=== PATIENT | male | born 1960 | race Caucasian/White ===

== ENCOUNTER 2017-11-12 10:15 | Emergency (ER) | payer OTHER ==
[2017-11-12] MEDS ORDERED: NORMAL SALINE 1000 ML 1,000 ML IV ONE (10:33)
--- NOTE | 2017-11-12 10:35 | ER Document Report ---
ED Medical Screen (RME) - General Chief Complaint: Dizziness Stated Complaint: DIZZINESS Time Seen by Provider: 11/12/17 10:20 Mode of Arrival: Ambulatory Information source: Patient TRAVEL OUTSIDE OF THE [place] IN LAST 30 DAYS: No - HPI Patient complains to provider of: Palpitations, lightheadedness, feeling jittery Onset: This morning Notes: 11/12/17 10:34 Patient is a 57-year-old male with history of type 2 diabetes presenting to the emergency room complaining of lightheadedness with palpitations and feeling jittery, symptoms started this morning, he also admits to excessive alcohol consumption on a daily basis with his last drink being sometime yesterday evening - Related Data Allergies/Adverse Reactions: Penicillins Allergy (Verified 11/12/17 10:18) Past Medical History - Past Medical History Cardiac Medical History: Reports: Hx Hypercholesterolemia, Hx Hypertension Endocrine Medical History: Reports: Hx Diabetes Mellitus Type 2 - Immunizations Hx Diphtheria, Pertussis, Tetanus Vaccination: Yes Physical Exam - Vital signs Vitals: Temp Pulse Resp BP Pulse Ox 98.4 F 112 H 18 138/85 H 97 11/12/17 10:21 11/12/17 10:21 11/12/17 10:21 11/12/17 10:21 11/12/17 10:21 Course - Vital Signs Vital signs: Temp Pulse Resp BP Pulse Ox 98.4 F 112 H 18 138/85 H 97 11/12/17 10:21 11/12/17 10:21 11/12/17 10:21 11/12/17 10:21 11/12/17 10:21 Doctor's Discharge - Discharge Referrals: MICHELLE HARTMANN MD [Primary Care Provider] - Follow up as needed
[2017-11-12 11:15] LABS: ABSOLUTE LYMPHOCYTES (AUTO) 1.6 10^3/uL (0.5-4.7); ABSOLUTE MONOCYTES (AUTO) 1.1 10^3/uL (0.1-1.4); BASOPHILS % (AUTO) 0.4 % (0-2); EOSINOPHILS % (AUTO) 0.3 % (0-6); HEMATOCRIT 40.9 % (37.9-51.0); HEMOGLOBIN 14.4 g/dL (13.5-17.0); LYMPHOCYTES % (AUTO) 16.2 % (13-45); MEAN CORPUSCULAR HEMOGLOBIN 33.4 pg (27.0-33.4); MEAN CORPUSCULAR HGB CONC 35.3 g/dL (32.0-36.0); MEAN CORPUSCULAR VOLUME 95 fl (80-97); MONOCYTES % (AUTO) 11.2 % (3-13); PLATELET COUNT 242 10^3/uL (150-450); RED BLOOD COUNT 4.33 10^6/uL (4.35-5.55); RED CELL DISTRIBUTION WIDTH 13.5 % (11.5-14.0); SEGMENTED NEUTROPHILS % (AUTO) 71.9 % (42-78); TOTAL CELLS COUNTED % (AUTO) 100 %; WHITE BLOOD COUNT 9.7 10^3/uL (4.0-10.5)
[2017-11-12 11:34] LABS: APPEARANCE,URINE CLOUDY; BILIRUBIN,URINE NEGATIVE (NEGATIVE); GLUCOSE, URINE NEGATIVE (NEGATIVE); KETONES,URINE TRACE mg/dL (NEGATIVE); LEUKOCYTE ESTERASE,URINE NEGATIVE (NEGATIVE); NITRITE,URINE NEGATIVE (NEGATIVE); PROTEIN,URINE 100 mg/dL (NEGATIVE); URINE SPECIFIC GRAVITY 1.018
[2017-11-12 11:35] LABS: ALANINE AMINOTRANSFERASE 63 U/L (21-72); ALBUMIN 5.1 g/dL (3.5-5.0); ALCOHOL < 10 mg/dL (NONE DETECTED); ALKALINE PHOSPHATASE 62 U/L (38-126); ANION GAP 17 (5-19); ASPARTATE AMINO TRANSFERASE 68 U/L (17-59); BILIRUBIN,DIRECT 0.4 mg/dL (0.0-0.4); BILIRUBIN,TOTAL 0.9 mg/dL (0.2-1.3); BLOOD UREA NITROGEN 32 mg/dL (7-20); CALCIUM 9.7 mg/dL (8.4-10.2); CARBON DIOXIDE 23 mmol/L (22-30); CHLORIDE 98 mmol/L (98-107); GLUCOSE 153 mg/dL (75-110); SODIUM 138.3 mmol/L (137-145); TOTAL PROTEIN 8.6 g/dL (6.3-8.2)
[2017-11-12 11:37] LABS: COLOR,URINE YELLOW
[2017-11-12] MEDS: RINGERS SOLUTION,LACTATED 1,000 ML IV PRN ×2 (13:52→16:20)
[2017-11-12 16:31] LABS: ANION GAP 13 (5-19); BLOOD UREA NITROGEN 26 mg/dL (7-20); CALCIUM 9.5 mg/dL (8.4-10.2); CARBON DIOXIDE 25 mmol/L (22-30); CHLORIDE 101 mmol/L (98-107); GLUCOSE 93 mg/dL (75-110); POTASSIUM 4.4 mmol/L (3.6-5.0); SODIUM 139.2 mmol/L (137-145)
--- NOTE | 2017-11-12 17:38 | ER Document Report ---
ED General - General Chief Complaint: Dizziness Stated Complaint: DIZZINESS Time Seen by Provider: 11/12/17 10:20 Mode of Arrival: Ambulatory Notes: 57-year-old male who admits to history of chronic alcoholism presents emergency department complaining that he started feeling dizzy and quite fatigued this morning while he was at work, felt like it was difficulty to focus and when he bent down and then stood back up again became more dizzy and felt like he was going to pass out except his vision did not go black. Patient admits that he ate quite a bit to drink last night however he states he is a functional alcoholic so he does not feel like this was significantly more than he would usually drink. States he has never had any withdrawal, denies feeling like he has tremors right now, denies any hallucinations, denies any history of seizures. Admits diarrhea this morning, denies vomiting, denies abdominal pain, numbness, tingling or headache. TRAVEL OUTSIDE OF THE [place] IN LAST 30 DAYS: No - Related Data Allergies/Adverse Reactions: Penicillins Allergy (Verified 11/12/17 10:18) Past Medical History - General Information source: Patient - Social History Smoking Status: Never Smoker Chew tobacco use (# tins/day): No Frequency of alcohol use: Heavy Drug Abuse: None Family History: Hypertension Patient has suicidal ideation: No Patient has homicidal ideation: No - Past Medical History Cardiac Medical History: Reports: Hx Hypercholesterolemia, Hx Hypertension Endocrine Medical History: Reports: Hx Diabetes Mellitus Type 2 Renal/ Medical History: Denies: Hx Peritoneal Dialysis - Immunizations Hx Diphtheria, Pertussis, Tetanus Vaccination: Yes Review of Systems - Review of Systems Constitutional: See HPI, Weakness EENT: No symptoms reported Cardiovascular: See HPI Respiratory: No symptoms reported Neurological/Psychological: See HPI -: Yes All other systems reviewed and negative Physical Exam - Vital signs Vitals: Temp Pulse Resp BP Pulse Ox 98.6 F 99 16 135/76 H 95 11/12/17 10:17 11/12/17 10:17 11/12/17 10:17 11/12/17 10:17 11/12/17 10:17 Interpretation: Normal - Notes Notes: GENERAL: Alert, interacts well. No acute distress. HEAD: Normocephalic, atraumatic EYES: Pupils equal, round and reactive to light, extraocular movements intact. ENT: Oral mucosa moist, tongue midline. NECK: Full range of motion, supple, trachea midline. LUNGS: Clear to auscultation bilaterally, no wheezes, rales or rhonchi, no respiratory distress. HEART: Tachycardic rate, regular rhythm, no murmurs, gallops, rubs. ABDOMEN: Soft, nontender, nondistended, bowel sounds present in all 4 quadrants. EXTREMITIES: Moves all 4 extremities spontaneously, no edema, radial and dorsalis pedis pulses 2/4 bilaterally. No cyanosis. NEUROLOGICAL: Alert and oriented x3, normal speech, biceps and patellar DTRs 2+ bilaterally. PSYCH: Normal mood, normal affect. SKIN: Warm, Dry, normal turgor, no rashes or lesions noted. Course - Re-evaluation Re-evalutation: 11/12/17 17:36 CBC unremarkable, CMP shows elevated BUN at 32, elevated creatinine at 2.04, is quite possibly from dehydration which fits with his description of bending over and standing up and feeling like he is going to pass out in the fact he is tachycardic and his tachycardia increases when he goes from laying down to sitting, cardiac enzymes negative, urinalysis shows trace ketones again supporting dehydration, alcohol level is undetectable. EKG shows tachycardia without ischemia. 11/12/17 17:36 Patient was hydrated with several liters of normal saline, BMP was repeated and it showed significant improvement with a BUN of 26 and creatinine of 1.32, patient still has some mild tachycardia with a heart rate of 107. I suspect the majority of this is coming from dehydration likely a combination of heavy alcohol use combined with exertion in the feet. Patient is encouraged to quit drinking, refuses any resources or to consult with mental health for outpatient resources. No indication for hospitalization, no evidence of anything beyond very mild withdrawal that may be causing his tachycardia combined with dehydration. Patient will be discharged to home. Patient is encouraged to follow-up with a primary care physician as an outpatient to have his renal function rechecked in a week. - Vital Signs Vital signs: Temp Pulse Resp BP Pulse Ox 98.6 F 99 18 135/76 H 97 11/12/17 11:33 11/12/17 12:00 11/12/17 12:00 11/12/17 12:00 11/12/17 12:00 - Laboratory Result Diagrams: 11/12/17 10:47 11/12/17 15:34 Laboratory results interpreted by me: 11/12/17 11/12/17 11/12/17 10:35 10:47 10:47 RBC 4.33 L BUN 32 H Creatinine 2.04 H Est GFR ( Amer) 41 L Est GFR (Non-Af Amer) 34 L Glucose 153 H POC Glucose 182 H AST 68 H Total Protein 8.6 H Albumin 5.1 H Urine Protein Urine Ketones Urine Urobilinogen 11/12/17 11/12/17 10:47 15:34 RBC BUN 26 H Creatinine 1.32 H Est GFR ( Amer) Est GFR (Non-Af Amer) 56 L Glucose POC Glucose AST Total Protein Albumin Urine Protein 100 H Urine Ketones TRACE H Urine Urobilinogen 2.0 H - EKG Interpretation by Me Additional EKG results interpreted by me: 11/12/17 17:37 EKG shows sinus tachycardia at a rate of 109, no ST segment elevations or depressions, no T-wave inversions, rapid R-wave progression per my interpretation. Discharge - Discharge Clinical Impression: Dehydration, Alcoholism Acute renal failure Qualifiers: Acute renal failure type: unspecified Qualified Code(s): N17.9 - Acute kidney failure, unspecified Condition: Stable Disposition: HOME, SELF-CARE Additional Instructions: Today your blood work showed dehydration and some damage to your kidneys because of this. After hydrating you it has improved significantly but is not completely gone. It is very important that you quit drinking alcohol, drink plenty of water to stay hydrated and have your kidney function rechecked in approximately 1 week. You may have this done at a primary care physician's office, at an urgent care or any other doctors office of your choice. Referrals: MICHELLE HARTMANN MD [COMMUNITY BASED STAFF] - Follow up in 3-5 days
[2017-11-12 17:59] VITALS: BP 155/89
--- NOTE | 2017-11-12 22:16 | EKG REPORT ---
SEVERITY:- BORDERLINE ECG - SINUS TACHYCARDIA CONSIDER ANTERIOR INFARCT BORDERLINE T ABNORMALITIES, ANTERIOR LEADS : Confirmed by: Oj Gavin 12-Nov-2017 22:15:36
== END 2017-11-12 17:59 | disposition home or self-care (01) ==
LOC: ER 10:15
DX: E86.0 Dehydration (principal); N17.9 Acute kidney failure, unspecified; F10.239 Alcohol dependence with withdrawal, unspecified; R00.0 Tachycardia, unspecified; R42 Dizziness and giddiness; R53.83 Other fatigue; R19.7 Diarrhea, unspecified; I10 Essential (primary) hypertension; E11.9 Type 2 diabetes mellitus without complications; Z88.0 Allergy status to penicillin
CPT/HCPCS: 93005; 99284; 96360; 36415; 82962; 80307; 85025; 80048; 80053; 81001; 84484; 93010; J7030; J7120

== ENCOUNTER 2018-07-11 13:47 | Emergency (ER) | payer OTHER ==
[2018-07-11] MEDS ORDERED: NORMAL SALINE 1000 ML 1,000 ML IV ONE (14:04)
[2018-07-11] MEDS ORDERED: ONDANSETRON HCL INJ/PF 4 MG/2 ML SDV IV ONE (14:04)
--- NOTE | 2018-07-11 14:06 | ER Document Report ---
ED Medical Screen (RME) - General Chief Complaint: Numbness of Face Stated Complaint: NUMBNESS OF FACE Time Seen by Provider: 07/11/18 14:01 Mode of Arrival: Wheelchair Information source: Patient TRAVEL OUTSIDE OF THE [place] IN LAST 30 DAYS: No - HPI Patient complains to provider of: Numbness and tingling sensation to hands feet and face Notes: 07/11/18 14:05 Patient is a 58-year-old male presenting to the emergency room complaining of numbness and tingling sensation to hands feet and face, the tingling sensation has been going on to the feet for some time, the hands have developed over the last few days and the facial tingling has developed today, patient admits to being a heavy consumer of alcohol with binge drinking over this weekend, states he "blacked out" and does not remember when his last drink was but it was probably sometime yesterday 07/11/18 14:06 RAPID MEDICAL EVALUATION DISCLOSURE I have seen this patient as part of a Rapid Medical Evaluation and, if applicable, placed any initially appropriate orders. The patient will be seen and fully evaluated, including a full history and physical exam, by a provider (in Main ED or Fast Track) when a room becomes available. - Related Data Allergies/Adverse Reactions: Penicillins Allergy (Verified 07/11/18 13:50) Past Medical History - Past Medical History Cardiac Medical History: Reports: Hx Hypercholesterolemia, Hx Hypertension Endocrine Medical History: Reports: Hx Diabetes Mellitus Type 2 Renal/ Medical History: Denies: Hx Peritoneal Dialysis - Immunizations Hx Diphtheria, Pertussis, Tetanus Vaccination: Yes
[2018-07-11 16:01] LABS: ABSOLUTE LYMPHOCYTES (AUTO) 0.8 10^3/uL (0.5-4.7); ABSOLUTE MONOCYTES (AUTO) 0.9 10^3/uL (0.1-1.4); BASOPHILS % (AUTO) 0.4 % (0-2); EOSINOPHILS % (AUTO) 0.1 % (0-6); HEMATOCRIT 38.4 % (37.9-51.0); HEMOGLOBIN 13.9 g/dL (13.5-17.0); LYMPHOCYTES % (AUTO) 9.6 % (13-45); MEAN CORPUSCULAR HGB CONC 36.1 g/dL (32.0-36.0); MEAN CORPUSCULAR VOLUME 91 fl (80-97); MONOCYTES % (AUTO) 10.5 % (3-13); PLATELET COUNT 231 10^3/uL (150-450); RED BLOOD COUNT 4.21 10^6/uL (4.35-5.55); RED CELL DISTRIBUTION WIDTH 12.8 % (11.5-14.0); SEGMENTED NEUTROPHILS % (AUTO) 79.4 % (42-78); TOTAL CELLS COUNTED % (AUTO) 100 %; WHITE BLOOD COUNT 8.9 10^3/uL (4.0-10.5)
[2018-07-11 16:19] LABS: A TYPE INFLUENZA AG NEGATIVE (NEGATIVE); B INFLUENZA AG NEGATIVE (NEGATIVE)
[2018-07-11 16:36] LABS: ALANINE AMINOTRANSFERASE 45 U/L (21-72); ALBUMIN 4.8 g/dL (3.5-5.0); ALKALINE PHOSPHATASE 65 U/L (38-126); ANION GAP 15 (5-19); ASPARTATE AMINO TRANSFERASE 34 U/L (17-59); BILIRUBIN,DIRECT 0.2 mg/dL (0.0-0.4); BLOOD UREA NITROGEN 11 mg/dL (7-20); CALCIUM 9.5 mg/dL (8.4-10.2); CARBON DIOXIDE 28 mmol/L (22-30); CHLORIDE 81 mmol/L (98-107); CREATINE KINASE 162 U/L (55-170); GLUCOSE 120 mg/dL (75-110); POTASSIUM 3.5 mmol/L (3.6-5.0); SODIUM 124.4 mmol/L (137-145); TOTAL PROTEIN 8.2 g/dL (6.3-8.2)
[2018-07-11 16:38] LABS: CREATINE KINASE MB 2.45 ng/mL (<4.55)
[2018-07-11 16:48] LABS: TROPONIN I < 0.012 ng/mL
[2018-07-11 17:30] LABS: APPEARANCE,URINE CLEAR; BILIRUBIN,URINE NEGATIVE (NEGATIVE); COLOR,URINE STRAW; GLUCOSE, URINE 50 mg/dL (NEGATIVE); KETONES,URINE TRACE mg/dL (NEGATIVE); LEUKOCYTE ESTERASE,URINE NEGATIVE (NEGATIVE); NITRITE,URINE NEGATIVE (NEGATIVE); PROTEIN,URINE NEGATIVE (NEGATIVE); URINE SPECIFIC GRAVITY 1.006; UROBILINOGEN,URINE NEGATIVE mg/dL (<2.0)
[2018-07-11 17:35] LABS: ALCOHOL < 10 mg/dL (NONE DETECTED)
[2018-07-11] MEDS: MAGNESIUM SULFATE/D5W 1 GM/100 ML RTUPB IV SCH ×2 (18:14→19:20)
--- NOTE | 2018-07-11 18:34 | ER Document Report ---
ED General - General Mode of Arrival: Wheelchair TRAVEL OUTSIDE OF THE [place] IN LAST 30 DAYS: No <DREW DAN - Last Filed: 07/11/18 20:18> <[email or web address] - Last Filed: 07/11/18 22:03> - General Chief Complaint: Numbness of Face Stated Complaint: NUMBNESS OF FACE Time Seen by Provider: 07/11/18 14:01 Notes: 58-year-old male presents to the emergency room complaining of numbness and tingling sensation to hands feet and face, the tingling sensation has been going on to the feet for some time, the hands have developed over the last few days and the facial tingling has developed today, patient admits to being a heavy consumer of alcohol with binge drinking over this weekend, states he "blacked out" and does not remember when his last drink was but it was probably sometime yesterday. Denies any falls or hitting his head. Denies confusion. Denies any fevers or chills. Had some nausea earlier today but not currently. No shortness of breath or chest pain. No vomiting. No abdominal pain. No bladder or bowel incontinence. (DREW DAN) - Related Data Allergies/Adverse Reactions: Penicillins Allergy (Verified 07/11/18 13:50) Past Medical History - General Information source: Patient - Social History Smoking Status: Current Every Day Smoker Frequency of alcohol use: Heavy Drug Abuse: None Family History: Hypertension Patient has suicidal ideation: No Patient has homicidal ideation: No - Past Medical History Cardiac Medical History: Reports: Hx Hypercholesterolemia, Hx Hypertension Endocrine Medical History: Reports: Hx Diabetes Mellitus Type 2 - borderline Renal/ Medical History: Denies: Hx Peritoneal Dialysis - Immunizations Hx Diphtheria, Pertussis, Tetanus Vaccination: Yes <DREW DAN - Last Filed: 07/11/18 20:18> Review of Systems - Review of Systems Constitutional: See HPI EENT: No symptoms reported Cardiovascular: See HPI Respiratory: See HPI Gastrointestinal: See HPI Genitourinary: See HPI Male Genitourinary: No symptoms reported Musculoskeletal: No symptoms reported Skin: No symptoms reported Hematologic/Lymphatic: No symptoms reported Neurological/Psychological: See HPI <DREW DAN - Last Filed: 07/11/18 20:18> Physical Exam <DREW DAN - Last Filed: 07/11/18 20:18> - Vital signs Vitals: Temp Pulse Resp BP Pulse Ox 98.4 F 112 H 18 176/99 H 100 07/11/18 13:57 07/11/18 13:57 07/11/18 13:57 07/11/18 13:57 07/11/18 13:57 - Notes Notes: PHYSICAL EXAMINATION: Reviewed vital signs and charting by RN GENERAL: Alert, interacts well. No acute distress. HEAD: Normocephalic, atraumatic. EYES: Pupils equal, round, and reactive to light. Extraocular movements intact. ENT: Oral mucosa moist NECK: Full range of motion. Supple. Trachea midline. LUNGS: Clear to auscultation bilaterally, no wheezes, rales, or rhonchi. No respiratory distress. HEART: Regular rate and rhythm. No murmur ABDOMEN: soft, non-tender. Non-distended. Bowel sounds present in all 4 quadrants. no McBurney's point tenderness, no Salmeron sign. EXTREMITIES: Moves all 4 extremities spontaneously. No edema, No cyanosis. NEUROLOGICAL: Alert and oriented x3. Normal speech. Strength 5/5 all 4 extremities. PSYCH: Normal affect, normal mood. SKIN: Warm, dry, normal turgor. No rashes or lesions noted. (DREW DAN) Course - Laboratory Result Diagrams: 07/11/18 15:16 07/11/18 15:16 <DREW DAN - Last Filed: 07/11/18 20:18> - Laboratory Result Diagrams: 07/11/18 15:16 07/11/18 21:13 <RAFI JACKSON - Last Filed: 07/11/18 22:03> - Re-evaluation Re-evalutation: 07/11/18 18:33 Overall well-appearing. Magnesium level 1.2. 2 g of mag ordered, first bag currently being administered. Patient states his last drink may have been yesterday. He states he can usually go a couple of days before he has symptoms. No evidence of acute alcohol withdrawals at this time. Serum alcohol level negative. Added phosphorus and vitamin B12. 07/11/18 18:42 07/11/18 19:37 Patient getting second gram of magnesium. Repeat mag and phosphorus ordered for 8:30 PM. Patient still showing no signs of acute alcohol withdrawal. Patient is not tachycardic, tachypneic, diaphoretic, or showing any signs of agitation or anxiety. Reports feeling well other than the numbness and tingling. Once magnesium is adequately repleted patient will be safe to discharge home pending repeat vital signs and if patient remains stable. Discharging patient home with a prescription for Librium. I explained to him that he has to do more than want to quit drinking alcohol and it will require a multidisciplinary approach. Patient is aware. Agrees with the entire plan. 07/11/18 20:18 Warm handoff completed at the bedside with Rafi CONNOLLY. (DREW DAN) 07/11/18 22:00 Patient reevaluated bedside. No current complaints or symptoms reported. Repeat sodium is 128 fortunately, repeat magnesium is normal at 2.1, vital signs unremarkable. I did discuss with patient his results, we also discussed options including enrolling in an outpatient detox program versus using Librium. He does want to use the Librium and understands that he is not to drink out all while taking this, this is in place of alcohol, he understands the risks of doing so. Discussed follow-up and return precautions. Patient states u nderstanding and agreement. (RAFI JACKSON) - Vital Signs Vital signs: Temp Pulse Resp BP Pulse Ox 98.4 F 112 H 14 120/75 96 07/11/18 13:57 07/11/18 13:57 07/11/18 21:01 07/11/18 21:01 07/11/18 21:01 - Laboratory Laboratory results interpreted by me: 07/11/18 07/11/18 07/11/18 14:35 15:16 15:16 RBC 4.21 L MCHC 36.1 H Seg Neutrophils % 79.4 H Lymphocytes % 9.6 L Sodium 124.4 L Potassium 3.5 L Chloride 81 L Glucose 120 H POC Glucose 150 H Magnesium 1.2 L* Vitamin B12 Urine Glucose (UA) Urine Ketones 07/11/18 07/11/18 07/11/18 15:16 15:24 17:09 RBC MCHC Seg Neutrophils % Lymphocytes % Sodium Potassium Chloride Glucose POC Glucose 128 H Magnesium Vitamin B12 220.0 L Urine Glucose (UA) 50 H Urine Ketones TRACE H 07/11/18 21:13 RBC MCHC Seg Neutrophils % Lymphocytes % Sodium 128.9 L Potassium 3.4 L Chloride 91 L Glucose 163 H POC Glucose Magnesium Vitamin B12 Urine Glucose (UA) Urine Ketones Discharge <RUBIODREW GARNICA - Last Filed: 07/11/18 20:18> <RAFI JACKSON - Last Filed: 07/11/18 22:03> - Discharge Clinical Impression: Hypomagnesemia, Alcoholism Condition: Good Disposition: HOME, SELF-CARE Additional Instructions: You were seen in the emergency department this evening for low magnesium. It is most likely due to your chronic alcohol use. We repleted her magnesium with 2 g of magnesium IV. All of your vital signs are stable and you are showing no signs of acute alcohol withdrawals. I prescribed you with a medication called Librium which is similar to Antabuse like we had talked about. If you decide to take this medication and attempt to drink it will make you acutely ill. It is i mportant to follow-up regarding your alcoholism if you truly desire to quit as it is a very complicated disease and requires a lot of support. If you develop similar signs of numbness and tingling you get muscle cramping, you have a seizure, you lose consciousness, severe chest pain, intractable nausea or vomiting, please immediately return to the emergency department. Prescriptions: Chlordiazepoxide HCl [Librium 25 mg Capsule] 1 cap PO QID #120 capsule
[2018-07-11 19:23] LABS: PHOSPHORUS 3.2 mg/dL (2.5-4.5)
[2018-07-11 21:37] LABS: ANION GAP 11 (5-19); BLOOD UREA NITROGEN 9 mg/dL (7-20); CALCIUM 9.3 mg/dL (8.4-10.2); CARBON DIOXIDE 27 mmol/L (22-30); CHLORIDE 91 mmol/L (98-107); GLUCOSE 163 mg/dL (75-110); POTASSIUM 3.4 mmol/L (3.6-5.0); SODIUM 128.9 mmol/L (137-145)
[2018-07-11 22:07] VITALS: BP 124/83
--- NOTE | 2018-07-12 00:17 | EKG REPORT ---
SEVERITY:- BORDERLINE ECG - SINUS RHYTHM PROBABLE LEFT ATRIAL ABNORMALITY BORDERLINE INFERIOR Q WAVES : Confirmed by: Oj Gavin 12-Jul-2018 00:17:38
== END 2018-07-11 22:06 | disposition home or self-care (01) ==
LOC: ER 13:47
DX: E83.42 Hypomagnesemia (principal); F10.20 Alcohol dependence, uncomplicated; R20.0 Anesthesia of skin; R20.2 Paresthesia of skin; I10 Essential (primary) hypertension; F17.200 Nicotine dependence, unspecified, uncomplicated; Z88.0 Allergy status to penicillin
CPT/HCPCS: 93005; 99284; 96361; 96375; 96365; 36415; 82553; 82962; 80307; 82607; 82550; 83735; 84100; 85025; 80048; 80053; 81001; 84484; 87804; 93010; J3475; J2405; J7030

== ENCOUNTER 2018-09-01 15:38 | Emergency (ER) | payer OTHER ==
--- NOTE | 2018-09-01 16:16 | ER Document Report ---
ED Medical Screen (RME) - General Chief Complaint: Numbness of Face Stated Complaint: LEFT LEG PAIN/FACE TINGLING Time Seen by Provider: 09/01/18 16:06 Mode of Arrival: Ambulatory Information source: Patient TRAVEL OUTSIDE OF THE [place] IN LAST 30 DAYS: No - HPI Patient complains to provider of: tingling, leg swelling Notes: 09/01/18 16:15 Patient is here with complaints of tingling to his face. This been intermittent for the last several weeks. He also states that he is noticed some swelling to his bilateral weeks. No chest pain or shortness of breath. He denies any blurred or loss vision. No unilateral numbness or weakness. Patient does drink alcohol daily. States that he has had I abnormalities in the past. Exam Nontoxic, no distress. Nonfocal neuro exam. Trace pitting edema to the bilateral lower extremities. Lungs clear and equal throughout. Heart sounds normal. Plan CBC, CMP lipase, urine, TSH, mag, chest x-ray An initial examination was made on the patient as part of the triage process, and it was determined a more comprehensive evaluation was necessary. Initial labs were ordered and patient was transferred to another provider in the ED who assumed care and finished evaluation and plan. - Related Data Allergies/Adverse Reactions: Penicillins Allergy (Verified 09/01/18 16:04) Past Medical History - Social History Chew tobacco use (# tins/day): No Frequency of alcohol use: Heavy Drug Abuse: None - Past Medical History Cardiac Medical History: Reports: Hx Hypercholesterolemia, Hx Hypertension Endocrine Medical History: Reports: Hx Diabetes Mellitus Type 2 - borderline Renal/ Medical History: Denies: Hx Peritoneal Dialysis - Immunizations Hx Diphtheria, Pertussis, Tetanus Vaccination: Yes Physical Exam - Vital signs Vitals: Temp Pulse Resp BP Pulse Ox 99.2 F 110 H 16 156/98 H 97 09/01/18 15:42 09/01/18 15:42 09/01/18 15:42 09/01/18 15:42 09/01/18 15:42 Course - Vital Signs Vital signs: Temp Pulse Resp BP Pulse Ox 99.2 F 110 H 16 156/98 H 97 09/01/18 15:42 09/01/18 15:42 09/01/18 15:42 09/01/18 15:42 09/01/18 15:42
--- NOTE | 2018-09-01 16:50 | RADIOLOGY REPORT (SQ) ---
EXAM DESCRIPTION: CHEST SINGLE VIEW COMPLETED DATE/TIME: 09/01/2018 4:25 pm REASON FOR STUDY: leg swelling COMPARISON: 05/24/2014 EXAM PARAMETERS: NUMBER OF VIEWS: One view. TECHNIQUE: Single frontal radiographic view of the chest acquired. RADIATION DOSE: NA LIMITATIONS: None. FINDINGS: LUNGS AND PLEURA: No opacities, masses or pneumothorax. No pleural effusion. MEDIASTINUM AND HILAR STRUCTURES: No masses. Contour normal. HEART AND VASCULAR STRUCTURES: Heart normal in size. Normal vasculature. BONES: No acute findings. HARDWARE: None in the chest. OTHER: No other significant finding. IMPRESSION: NO ACUTE RADIOGRAPHIC FINDING IN THE CHEST. TECHNICAL DOCUMENTATION: JOB ID: [id number] [employer]- All Rights Reserved Reading location - IP/workstation name: [email or web address]
[2018-09-01 16:58] LABS: ABSOLUTE LYMPHOCYTES (AUTO) 1.1 10^3/uL (0.5-4.7); ABSOLUTE MONOCYTES (AUTO) 0.9 10^3/uL (0.1-1.4); ABSOLUTE NEUT (AUTO) 7.6 10^3/uL (1.7-8.2); BASOPHILS % (AUTO) 0.5 % (0-2); EOSINOPHILS % (AUTO) 0.3 % (0-6); HEMATOCRIT 40.4 % (37.9-51.0); HEMOGLOBIN 13.8 g/dL (13.5-17.0); LYMPHOCYTES % (AUTO) 11.7 % (13-45); MEAN CORPUSCULAR HEMOGLOBIN 32.2 pg (27.0-33.4); MEAN CORPUSCULAR HGB CONC 34.3 g/dL (32.0-36.0); MEAN CORPUSCULAR VOLUME 94 fl (80-97); MONOCYTES % (AUTO) 9.6 % (3-13); PLATELET COUNT 217 10^3/uL (150-450); RED BLOOD COUNT 4.29 10^6/uL (4.35-5.55); RED CELL DISTRIBUTION WIDTH 12.8 % (11.5-14.0); SEGMENTED NEUTROPHILS % (AUTO) 77.9 % (42-78); TOTAL CELLS COUNTED % (AUTO) 100 %; WHITE BLOOD COUNT 9.8 10^3/uL (4.0-10.5)
[2018-09-01 17:01] LABS: APPEARANCE,URINE CLEAR; BILIRUBIN,URINE NEGATIVE (NEGATIVE); COLOR,URINE STRAW; GLUCOSE, URINE NEGATIVE (NEGATIVE); KETONES,URINE NEGATIVE (NEGATIVE); LEUKOCYTE ESTERASE,URINE NEGATIVE (NEGATIVE); NITRITE,URINE NEGATIVE (NEGATIVE); PROTEIN,URINE NEGATIVE (NEGATIVE); UROBILINOGEN,URINE NEGATIVE mg/dL (<2.0)
[2018-09-01 17:23] LABS: ALANINE AMINOTRANSFERASE 53 U/L (21-72); ALBUMIN 5.1 g/dL (3.5-5.0); ALKALINE PHOSPHATASE 60 U/L (38-126); ANION GAP 14 (5-19); ASPARTATE AMINO TRANSFERASE 36 U/L (17-59); BILIRUBIN,DIRECT 0.3 mg/dL (0.0-0.4); BILIRUBIN,TOTAL 0.6 mg/dL (0.2-1.3); BLOOD UREA NITROGEN 16 mg/dL (7-20); CARBON DIOXIDE 28 mmol/L (22-30); CHLORIDE 94 mmol/L (98-107); GLUCOSE 112 mg/dL (75-110); POTASSIUM 3.8 mmol/L (3.6-5.0); TOTAL PROTEIN 8.3 g/dL (6.3-8.2)
--- NOTE | 2018-09-01 18:49 | ER Document Report ---
ED Neuro Symptoms/Deficit - General Chief Complaint: Numbness of Face Stated Complaint: LEFT LEG PAIN/FACE TINGLING Time Seen by Provider: 09/01/18 16:06 Mode of Arrival: Ambulatory Information source: Patient TRAVEL OUTSIDE OF THE [place] IN LAST 30 DAYS: No - HPI Patient complains to provider of: Other - TINGLING Notes: Patient here with complaints of tingling to the face. States is been intermittent for the last few weeks. It is on both sides of his face. There is no numbness or weakness just tingling sensation. He denies any unilateral numbness, tingling, weakness to the arms or the legs. He also states that he felt like his legs have been slightly swollen over the last few weeks as well. No chest pain or shortness of breath. Patient denies any nausea, vomiting, diarrhea. No blood thinners. No recent long trips or surgeries. No calf pain or swelling. No cancer. No history of DVT or PE. He does drink alcohol daily. He denies any rashes. No fever. Nothing seems to make his symptoms better or worse, he denies any other complaints. - Related Data Allergies/Adverse Reactions: Penicillins Allergy (Verified 09/01/18 16:04) Past Medical History - General Information source: Patient - Social History Smoking Status: Never Smoker Chew tobacco use (# tins/day): No Frequency of alcohol use: Heavy Drug Abuse: None Family History: Hypertension Patient has suicidal ideation: No Patient has homicidal ideation: No - Past Medical History Cardiac Medical History: Reports: Hx Hypercholesterolemia, Hx Hypertension Endocrine Medical History: Reports: Hx Diabetes Mellitus Type 2 - borderline Renal/ Medical History: Denies: Hx Peritoneal Dialysis - Immunizations Hx Diphtheria, Pertussis, Tetanus Vaccination: Yes Review of Systems - Review of Systems -: Yes All other systems reviewed and negative Physical Exam - Vital signs Vitals: Temp Pulse Resp BP Pulse Ox 99.2 F 110 H 16 156/98 H 97 09/01/18 15:42 09/01/18 15:42 09/01/18 15:42 09/01/18 15:42 09/01/18 15:42 - Notes Notes: GENERAL: alert, cooperative, nontoxic, no distress. HEAD: normocephalic, atraumatic EYES: conjunctiva pink without discharge, no external redness or swelling. Pupils are equal, round, reactive to light. EARS: no external swelling, no external redness NOSE: atraumatic, no external swelling MOUTH/THROAT: mucous membranes moist and pink, posterior pharynx without erythema, swelling, exudate. No trismus or drooling. NECK: soft, supple, full range of motion, no meningismus. CHEST: no distress, lungs clear and equal throughout. No wheezing, rales, rhonchi. CARDIAC: regular rate and rhythm, no murmur, normal capillary refill, normal pulses. Trace pitting edema to the bilateral lower extremities. BACK: full range of motion, no CVA tenderness. EXTREMITIES: full range of motion of all extremities. NEURO: alert and oriented x 3, cranial nerves II through XII are grossly intact. Upper and lower extremities are equal throughout. Normal sensation. No focal deficits, full range of motion of all extremities. normal finger to nose. NIH stroke score of 0. PYSCH: appropriate mood, affect. Patient is cooperative. SKIN: pink, warm, dry, no rash. Course - Re-evaluation Re-evalutation: 09/01/18 18:47 Patient is nontoxic-appearing with stable vitals. Patient here with complaints of tingling to the bilateral face. Is been intermittent for the last few weeks. He has a nonfocal neuro exam. Lab work is unremarkable for any significant abnormalities. Patient is a daily drinker, is possible that some of his symptoms are related to his chronic alcohol use. Letter lites are unremarkable, TSH is normal. Also has some mild edema to the bilateral lower extremities. No chest pain or shortness of breath. Chest x-ray shows no abnormalities. Patient states that he is feeling significantly better at this time and would like to go home. Discussed the case with Dr. Quezada who agrees a discharge home at this time is appropriate. Patient will be discharged home with instructions to follow-up with primary care at the next available appointment. Follow-up sooner for any worsening symptoms, numbness, tingling, weakness, chest pain, shortness of breath, any further concerns. The patient's emergency department workup and current diagnosis were explained to the patient and or family. Follow-up instructions were provided. Medications if prescribed were discussed. Instructions for when to return to the emergency department including specific worrisome symptoms were discussed with the patient and/or family. - Vital Signs Vital signs: Temp Pulse Resp BP Pulse Ox 99.2 F 110 H 16 156/98 H 97 09/01/18 15:42 09/01/18 15:42 09/01/18 15:42 09/01/18 15:42 09/01/18 15:42 - Laboratory Result Diagrams: 09/01/18 16:25 09/01/18 16:25 Laboratory results interpreted by me: 09/01/18 09/01/18 16:25 16:25 RBC 4.29 L Lymphocytes % 11.7 L Sodium 136.0 L Chloride 94 L Glucose 112 H Total Protein 8.3 H Albumin 5.1 H - Diagnostic Test Radiology reviewed: Image reviewed, Reports reviewed - Chest x-ray negative Discharge - Discharge Clinical Impression: Paresthesia Condition: Stable Disposition: HOME, SELF-CARE Instructions: Numbness or Paresthesia ([facility]) Additional Instructions: Follow-up with primary care at the next available appointment. Follow-up sooner for worsening symptoms, numbness, tingling, weakness on one side your body comp ared to the other, chest pain or shortness of breath, fever, or for any further concerns. Try to decrease her alcohol intake. Forms: Elevated Blood Pressure Referrals: [facility] [Provider Group] - Follow up as needed
[2018-09-01 19:21] VITALS: BP 148/92
== END 2018-09-01 19:19 | disposition home or self-care (01) ==
LOC: ER 15:38
DX: R20.2 Paresthesia of skin (principal); R60.0 Localized edema; I10 Essential (primary) hypertension; Z88.0 Allergy status to penicillin
CPT/HCPCS: 36415; 71045; 80053; 81001; 83690; 83735; 84443; 85025; 99284